=== PATIENT | female | born 1955 | race Caucasian/White ===

== ENCOUNTER 2016-08-07 19:01 | Emergency (ER) | payer OTHER ==
[~2016-08-07] VITALS: Ht 167.6 cm; Wt 59.0 kg
--- NOTE | 2016-08-07 19:09 | ED SYNCOPE COMPLAINT ---
History of Present Illness General Chief Complaint: Syncope and Near-Syncope Stated Complaint: SYNCOPAL EPISODE AT WORK Source: patient, old records, EMS Exam Limitations: no limitations Vital Signs & Intake/Output Vital Signs & Intake/Output Vital Signs Date Time Temp Pulse Resp B/P Pulse O2 O2 Flow FiO2 Ox Delivery Rate 08/07 2313 Room Air 08/07 2313 97.2 74 16 109/61 98 Room Air 08/07 2129 97.6 88 18 128/66 98 Room Air 08/07 1908 Nasal 2.0L Cannula 08/07 1906 76 18 118/69 98 Nasal 2.0L Cannula Allergies Coded Allergies: No Known Allergies (08/07/16) Reconcile Medications Azelaic Acid (Finacea) 15 % FOAM 1 GENARO TOP QHS FACE (Reported) Ergocalciferol (Vitamin D2) (Vitamin D2) 50,000 UNIT CAPSULE 1 CAP PO QSUN SUPPLEMENT (Reported) Hydrochlorothiazide 12.5 MG CAPSULE 1 CAP PO DAILY BP (Reported) Levothyroxine Sodium 25 MCG TABLET 1 TAB PO DAILY THYROID (Reported) Lisinopril 20 MG TABLET 1 TAB PO DAILY BP (Reported) Meloxicam 15 MG TABLET 1 TAB PO PRN PAIN/INFLAMMATION (Reported) Metronidazole (Metrocream) 0.75 % CREAM..G. 1 GENARO TOP QAM FACE (Reported) apply to affected area(s) Triage Note: PT IS A [employer]. WAS AT WORK ASSISTING A CLIENT. PT HAD ABDOMINAL CRAMPING AND LEFT CLIENT AND QUICKLY WENT TO BATHROOM AND HAD BM. THEN WENT BACK TO CLIENT. PATIENT STATES SHE WAS DIZZY, BREtHING HEAVY, ROOM FELT HOT AND SHE PASSED OUT. Triage Nurses Notes Reviewed? yes HPI: Patient is a [employer] and she was helping a patient. The patient then began to have abdominal cramping so she went to the bathroom. While moving her bowels she felt very lightheaded. Patient then went back to helping the patient. While doing so she felt very lightheaded and needed to sit down. Patient can put her head between her knees because she fell and she was given a pass out. Patient denies actually passing out but does think that she lost track of time. Patient denies any chest pain or palpitations. Patient felt better however figured that she should probably come in to get it evaluated. Patient has no chronic complaints. Patient had no orthostatic changes. Past History Travel History Traveled to [place] past 21 day No Medical History Any Pertinent Medical History? see below for history Neurological: NONE EENT: NONE Cardiovascular: hypertension Respiratory: NONE Gastrointestinal: NONE Hepatic: NONE Renal: NONE Musculoskeletal: NONE Psychiatric: NONE Endocrine: hypothyroidism Blood Disorders: NONE Cancer(s): NONE Surgical History Surgical History: non-contributory Psychosocial History What is your primary language Guyanese Tobacco Use: Current Daily Use Daily Tobacco Use Amount/Type: =< 4 Cigarettes daily ETOH Use: occasional use Illicit Drug Use: denies illicit drug use Family History Hx Contributory? No Review of Systems Review of Systems Constitutional: Reports: no symptoms. EENTM: Reports: no symptoms. Respiratory: Reports: no symptoms. Cardiovascular: Reports: no symptoms. GI: Reports: see HPI, abdominal pain. Genitourinary: Reports: no symptoms. Musculoskeletal: Reports: no symptoms. Skin: Reports: no symptoms. Neurological/Psychological: Reports: no symptoms. All Other Systems: Reviewed and Negative Physical Exam Physical Exam General Appearance: well developed/nourished, alert, awake, anxious, mild distress Head: atraumatic, normal appearance Eyes: Bilateral: PERRL, EOMI. Ears, Nose, Throat: normal pharynx, normal ENT inspection, hearing grossly normal Neck: normal inspection, supple, full range of motion Respiratory: normal breath sounds, chest non-tender, no respiratory distress, lungs clear Cardiovascular: regular rate/rhythm, normal peripheral pulses Gastrointestinal: normal bowel sounds, soft, non-tender, no organomegaly Back: normal inspection, normal range of motion Extremities: normal inspection, normal capillary refill, normal range of motion, no edema Psychiatric: awake, alert, oriented x 3 Cranial Nerves: normal hearing, normal speech, PERRL Coordination/Gait: normal gait Motor/Sensory: no motor/sensory deficits Skin: intact, normal color, warm/dry Core Measures ACS in differential dx? Yes ASA ordered for poss ACS? No-ACS ruled out CVA/TIA Diagnosis: No Severe Sepsis Present: No Septic Shock Present: No Progress Differential Diagnosis: AMI, aortic dissection, drug induced syncope, orthostatic syncope, pulmonary embolus, sick sinus syndrome, vasodepressor syncope Plan of Care: Orders Procedure Date/time Status TROPONIN LEVEL 08/08 2219 Complete BASIC METABOLIC PANEL 08/08 2219 Complete EKG 08/08 2011 Active Telemetry/[facility] [employer] 04/17 1908 Active TROPONIN LEVEL 08/08 1907 Complete COMPREHENSIVE METABOLIC PANEL 08/08 1907 Complete CBC WITHOUT DIFFERENTIAL 08/08 1907 Complete Laboratory Tests 08/07/16 2227: Anion Gap 9, Estimated GFR 50 L, BUN/Creatinine Ratio 10.9, Glucose 139 H, Calcium 8.7, Troponin I < 0.01 08/07/161928: Anion Gap 15, Estimated GFR 42 L, BUN/Creatinine Ratio 10.0, Glucose 104 H, Calcium 9.5, Total Bilirubin 0.5, AST 104 H, ALT 51, Alkaline Phosphatase 93, Troponin I < 0.01, Total Protein 6.8, Albumin 4.3, Globulin 2.5, Albumin/ Globulin Ratio 1.7, CBC w Diff NO MAN DIFF REQ, RBC 3.27 L, MCV 106.2 H, MCH 35.7 H, RDW 14.1, MPV 8.4, Gran % 85.1 H, Lymphocytes % 8.9 L, Monocytes % 5.5, Eosinophils % 0.1, Basophils % 0.4, Absolute Granulocytes 8.7 H, Absolute Lymphocytes 0.9 L, Absolute Monocytes 0.6, Absolute Eosinophils 0, Absolute Basophils 0, PUBS MCHC 33.7 Initial ED EKG: NSR, no ST T wave changes Prior EKG: unchanged Departure Departure Disposition: HOME OR SELF CARE Condition: Stable Clinical Impression Primary Impression: Syncope Secondary Impressions: Hyponatremia Referrals: SUYAPA DUCKWORTH,KRISS Reyna (PCP/Family) Additional Instructions: RETURN IF SYMPTOMS WORSEN OR FOR ANY CONCERNS Departure Forms: Customer Survey General Discharge Information
[2016-08-07] MEDS ORDERED: MELOXICAM15 M1 PO (19:29)
[2016-08-07] MEDS ORDERED: LEVOTHYROXINE25 MCG PO (19:29)
[2016-08-07] MEDS ORDERED: HYDROCHLOROTH12.5 M3 PO (19:29)
[2016-08-07] MEDS ORDERED: LISINOPRIL20 M1 PO (19:29)
[2016-08-07] MEDS ORDERED: FINACEA50 GM TOP (19:30)
[2016-08-07] MEDS ORDERED: VITAMIN D250000 UNIT PO (19:30)
[2016-08-07] MEDS ORDERED: METROCREAM45 GM TOP (19:30)
[2016-08-07 19:37] LABS: ABSOLUTE BASOPHIL COUNT 0 /CUMM (0.0-0.2); ABSOLUTE EOSINOPHIL COUNT 0 /CUMM (0.0-0.7); ABSOLUTE GRANULOCYTE CT 8.7 /CUMM (1.4-6.5); ABSOLUTE LYMPH COUNT 0.9 /CUMM (1.2-3.4); ABSOLUTE MONOCYTE COUNT 0.6 /CUMM (0.10-0.60); BASOPHIL % 0.4 % (0.0-2.0); EOSINOPHIL % 0.1 % (0-5); MEAN CORPUSCULAR HGB 35.7 PG (27.0-31.0); MEAN CORPUSCULAR HGB CONC 33.7 G/DL (33.0-37.0); MEAN PLATELET VOLUME 8.4 FL (7.4-10.4); PLATELET COUNT 170 /CUMM (130-400); RBC DISTRIBUTION WIDTH 14.1 % (11.5-14.5); RED BLOOD CELL CT 3.27 /CUMM (4.20-5.40); WHITE BLOOD CELL COUNT 10.3 /CUMM (4.8-10.8)
[2016-08-07 19:52] LABS: GRANULOCYTE % 85.1 % (42.2-75.2); HEMATOCRIT 34.7 % (37-47); MEAN CORPUSCULAR VOLUME 106.2 FL (81.0-99.0)
[2016-08-07 23:14] VITALS: BP 109/61
== END 2016-08-07 23:51 ==
LOC: ERH 19:01
PROVIDERS: Emergency Medicine
DX: R55 Syncope and collapse (principal); E87.1 Hypo-osmolality and hyponatremia
CPT/HCPCS: 93005; 93010; 96360; 96361

== ENCOUNTER 2017-11-05 13:35 | Inpatient (IN) | payer OTHER ==
[~2017-11-05] VITALS: Ht 167.6 cm; Wt 56.3 kg
[~2017-11-05 13:35] MED LIST: FINACEA50 GM TOP; HYDROCHLOROTH12.5 M3 PO; MELOXICAM15 M1 PO; METROCREAM45 GM TOP; VITAMIN D250000 UNIT PO
[2017-11-05 13:58] LABS: ABSOLUTE BASOPHIL COUNT 0 /CUMM (0.0-0.2); ABSOLUTE EOSINOPHIL COUNT 0 /CUMM (0.0-0.7); ABSOLUTE LYMPH COUNT 1.6 /CUMM (1.2-3.4); ABSOLUTE MONOCYTE COUNT 0.8 /CUMM (0.10-0.60); BASOPHIL % 0.4 % (0.0-2.0); EOSINOPHIL % 0.2 % (0-5); GRANULOCYTE % 73.9 % (42.2-75.2); HEMATOCRIT 41.6 % (37-47); MEAN CORPUSCULAR HGB 34.3 PG (27.0-31.0); MEAN CORPUSCULAR HGB CONC 34.2 G/DL (33.0-37.0); MEAN CORPUSCULAR VOLUME 100.4 FL (81.0-99.0); MEAN PLATELET VOLUME 8.1 FL (7.4-10.4); PLATELET COUNT 296 /CUMM (130-400); RBC DISTRIBUTION WIDTH 14.9 % (11.5-14.5); RED BLOOD CELL CT 4.14 /CUMM (4.20-5.40); WHITE BLOOD CELL COUNT 9.4 /CUMM (4.8-10.8)
[2017-11-05] MEDS ORDERED: LEXAPRO20 M1 PO (14:28)
[2017-11-05] MEDS ORDERED: GABAPENTIN300 M2 PO (14:28)
[2017-11-05] MEDS ORDERED: NALTREXONE HCL50 M1 PO (14:29)
--- NOTE | 2017-11-05 14:34 | ED GENERAL ADULT ---
History of Present Illness General Chief Complaint: General Adult Stated Complaint: SIB DR GARLAND FOR IV THEREAPY S/P BLOODWORK Source: patient Exam Limitations: no limitations Vital Signs & Intake/Output Vital Signs & Intake/Output Vital Signs Date Time Temp Pulse Resp B/P B/P Pulse O2 O2 Flow FiO2 Mean Ox Delivery Rate 11/05 1533 184/102 11/05 1529 75 18 187/102 98 Room Air 11/05 1341 98.9 93 19 204/106 97 Room Air Allergies Coded Allergies: No Known Allergies (08/07/16) Reconcile Medications Ergocalciferol (Vitamin D2) (Vitamin D2) 50,000 UNIT CAPSULE 1 CAP PO QSUN SUPPLEMENT (Reported) Escitalopram Oxalate (Lexapro) 20 MG TABLET 1 TAB PO DAILY MENTAL HEALTH ( Reported) Gabapentin 300 MG CAPSULE 1 CAP PO TID PRN UNKNOWN (Reported) Hydrochlorothiazide 12.5 MG CAPSULE 1 CAP PO DAILY BP (Reported) Levothyroxine Sodium 25 MCG TABLET 1 TAB PO DAILY THYROID (Reported) Lisinopril 20 MG TABLET 1 TAB PO DAILY BP (Reported) Naltrexone HCl 50 MG TABLET 1 TAB PO DAILY MENTAL HEALTH (Reported) Triage Note: PT SENT TO ED BY MD GARLAND FOR ?ABNORMAL ELECTROLYTES?. PT STATES HAD ROUTINE BLOOD WORK THIS AM AND WAS CALLED TO COME TO ED. PT IS COMPLAINT FREE AT THIS TIME. BP 204/106 IN TRIAGE. STATES DOES NOT TAKE BP MEDS. Triage Nurses Notes Reviewed? yes Onset: Abrupt Duration: day(s): Timing: constant HPI: 62-year-old female with history of hypertension, hypothyroid, EtOH abuse sent in for hypomagnesemia to 0.9 found on routine outpatient labs. Patient denies a history of hypomagnesemia in the past. States that her last EtOH use was several weeks ago, and is currently in an outpatient detox program patient denies any withdrawal seizures, DTs, or tremors when she withdraws. Does not need EtOH detox at this time. Patient is asymptomatic with no complaints, denies chest pain or shortness of breath. Past History Travel History Traveled to [place] past 21 day No Medical History Any Pertinent Medical History? see below for history Neurological: NONE EENT: NONE Cardiovascular: hypertension Respiratory: NONE Gastrointestinal: NONE Hepatic: NONE Renal: NONE Musculoskeletal: NONE Psychiatric: alcohol dependence Endocrine: hypothyroidism Blood Disorders: NONE Cancer(s): NONE Surgical History Surgical History: non-contributory Psychosocial History What is your primary language Somali Family History Hx Contributory? No Review of Systems Review of Systems Constitutional: Reports: no symptoms. EENTM: Reports: no symptoms. Respiratory: Reports: no symptoms. Cardiovascular: Reports: no symptoms. GI: Reports: no symptoms. Genitourinary: Reports: no symptoms. Musculoskeletal: Reports: no symptoms. Skin: Reports: no symptoms. Neurological/Psychological: Reports: no symptoms. Hematologic/Endocrine: Reports: no symptoms. Immunologic/Allergic: Reports: no symptoms. All Other Systems: Reviewed and Negative Physical Exam Physical Exam General Appearance: well developed/nourished, no apparent distress, alert, awake , comfortable Head: atraumatic, normal appearance Eyes: Bilateral: normal appearance. Ears, Nose, Throat: no tongue fasciculations Neck: normal inspection Respiratory: normal breath sounds, lungs clear Cardiovascular: regular rate/rhythm Gastrointestinal: soft, non-tender Back: normal inspection Extremities: normal inspection, no tremors Neurologic/Psych: awake, alert, oriented x 3, normal gait, normal mood/affect Skin: intact, normal color, warm/dry Core Measures ACS in differential dx? No CVA/TIA Diagnosis: No Sepsis Present: No Sepsis Focused Exam Completed? No Progress Differential Diagnoses I considered the following diagnoses in my evaluation of the patient: [ Hypomagnesemia versus cardiac arrhythmia versus EtOH intoxication versus EtOH withdrawal] Plan of Care: Orders Procedure Date/time Status Add-on Test (ER Only) 11/05 1501 Active Add-on Test (ER Only) 11/05 1440 Active Add-on Test (ER Only) 11/05 1433 Active TSH REFLEX 11/05 1347 Complete TROPONIN LEVEL 11/05 1347 Complete MAGNESIUM 11/05 1347 Complete ETHANOL 11/05 1347 Complete URINALYSIS 11/05 1345 Complete COMPREHENSIVE METABOLIC PANEL 11/05 1345 Complete CBC WITHOUT DIFFERENTIAL 11/05 1345 Complete EKG 11/05 1345 Active Current Medications Sig/Hermes Start time Last Medication Dose Stop Time Status Admin Magnesium Sulfate 1 GM Q2H 11/05 1530 AC 11/05 (Mag Sulfate in D5) 11/05 1929 1553 Dextrose/Water 100 ML (D5W) Laboratory Tests 11/05/17 1348: Magnesium Cancelled 11/05/17 1347: Anion Gap 18 H, Estimated GFR > 60, BUN/Creatinine Ratio 12.5, Glucose 121 H, Calcium 10.2, Magnesium 0.9 *L, Total Bilirubin 1.7 H, AST 111 H, ALT 73 H, Alkaline Phosphatase 79, Troponin I < 0.01, Total Protein 8.1, Albumin 4.9, Globulin 3.2, Albumin/Globulin Ratio 1.5, TSH &T3 &Free T4 Intrp 6.580 H, CBC w Diff NO MAN DIFF REQ, RBC 4.14 L, MCV 100.4 H, MCH 34.3 H, MCHC 34.2, RDW 14.9 H, MPV 8.1, Gran % 73.9, Lymphocytes % 16.9 L, Monocytes % 8.6, Eosinophils % 0.2, Basophils % 0.4, Absolute Granulocytes 7.0 H, Absolute Lymphocytes 1.6, Absolute Monocytes 0.8 H, Absolute Eosinophils 0, Absolute Basophils 0, Serum Alcohol < 10.0, Urine Color YEL, Urine Clarity CLEAR, Urine pH 6.0, Ur Specific Ney >= 1.030, Urine Protein NEG, Urine Ketones NEG, Urine Nitrite NEG, Urine Bilirubin NEG, Urine Urobilinogen 0.2, Ur Leukocyte Esterase NEG, Ur Microscopic EXAM NOT REQUIRED, Urine Hemoglobin NEG, Urine Glucose NEG Magnesium is 0.9 on repeat labs in the ER. Patient given 2 g of IV magnesium sulfate, and for 100 mg of oral magnesium oxide. Discussed with hospitalist and will admit the patient to telemetry for her EKG changes and continued magnesium repletion. Initial ED EKG: NSR, ST depression (anterior leads), normal QTc Departure Departure Disposition: STILL A PATIENT Condition: Stable Clinical Impression Primary Impression: Hypomagnesemia Secondary Impressions: Acute electrocardiogram changes Referrals: Madison DUCKWORTH,Jeanne Reyna (PCP/Family) Departure Forms: Customer Survey General Discharge Information Admission Note Spoke With: Phan He MD Documentation of Exam: Documentation of any treatments & extenuating circumstances including Concerns Regarding Discharge (functional status, medication knowledge or non-compliance, living conditions, etc.) that warrant an admission rather than observation: [ Hemodynamic monitoring, telemetry monitoring, IV and oral magnesium repletion, serial EKGs, serial troponins] Critical Care Note Critical Care Note Critical Care Time: non-applicable
--- NOTE | 2017-11-05 17:14 | History & Physical ---
Clint Dumont 11/05/17 1713: General Information and HPI Source of Information: patient Exam Limitations: no limitations History of Present Illness: Ms. Cool is a 62-year-old female with history of alcohol abuse currently in treatment, hypertension, hypothyroidism and depression. The patient presented to outpatient psychiatry for medical screening and was sent to the emergency department due to abnormal lab findings of hypomagnesemia. Upon arrival to the emergency department, the patient was noted to have a blood pressure of 204/106, as well as acute EKG changes of new ST elevation in V4. Patient denied any associated symptoms including chest pain, palpitations, shortness of breath, visual changes, headache, weakness, tingling/numbness, changes in gait, lightheadedness, dizziness. The patient said that she had been prescribed hydrochlorothiazide and lisinopril for blood pressure, but is not taking them currently as she was told to stop by her primary care doctor almost 2 years ago. She is similarly no longer taking levothyroxine for her thyroid. Patient denies any changes in urinary or bowel habits, and other review of systems is likewise negative. The patient is a former smoker, having smoked about 1 pack per week for over 30 years, but reports that she has quit and no longer smokes. She denies any recreational drug use. She does endorse a history of drinking alcohol 4 days a week and drinking at least "4 ounces" each of those days, but reports that she has recently completed and [facility] program for intensive alcohol abuse treatment. In spite of this, the patient reports that her last drink was this past , 4 days ago. Allergies/Medications Allergies: Coded Allergies: No Known Allergies (08/07/16) Compliance With Home Meds: FAIR Past History Travel History Traveled to [place] past 21 day No Medical History Neurological: peripheral neuropathy (bilateral feet) EENT: NONE Cardiovascular: hypertension Respiratory: NONE Gastrointestinal: NONE Hepatic: NONE Renal: NONE Musculoskeletal: NONE Psychiatric: alcohol dependence, depression Endocrine: hypothyroidism Blood Disorders: NONE Cancer(s): NONE Surgical History Surgical History: non-contributory Past Family/Social History Psychosocial History Smoking Status: Former Smoker ETOH Use: alcoholic (currently in treatment) Illicit Drug Use: denies illicit drug use Review of Systems Review of Systems Constitutional: Denies: chills, diaphoresis, fever. Cardiovascular: Denies: chest pain, orthopena, palpitations, peripheral edema, syncope. Respiratory: Denies: cough, short of breath, wheezing. GI: Denies: abdominal pain, nausea, changes in stool, vomiting. Genitourinary: Denies: no symptoms. Musculoskeletal: Denies: muscle stiffness, neck pain. Neurological/Psychological: Denies: confusion, headache, tremors. Exam & Diagnostic Data Last 24 Hrs of Vital Signs/I&O Vital Signs Date Time Temp Pulse Resp B/P B/P Pulse O2 O2 Flow FiO2 Mean Ox Delivery Rate 11/05 1725 98.1 76 18 168/93 11/05 1715 98.1 76 18 168/93 98 Room Air 11/05 1533 184/102 11/05 1529 75 18 187/102 98 Room Air 11/05 1341 98.9 93 19 204/106 97 Room Air Intake & Output 11/05 1600 11/05 0800 11/05 0000 Intake Total 0 Output Total Balance 0 Intake, Oral 0 Physical Exam General Appearance Alert, Oriented X3, Cooperative, No Acute Distress HEENT Atraumatic, PERRLA, EOMI Neck Supple, No JVD, +2 Carotid Pulse wo Bruit Cardiovascular Regular Rate, Normal S1, Normal S2, No Murmurs Lungs Clear to Auscultation Abdomen Normal Bowel Sounds, Soft, No Tenderness Neurological Normal Gait, Normal Speech, Strength at 5/5 X4 Ext, Sensation Intact Extremities No Clubbing, No Cyanosis, No Edema Last 24 Hrs of Labs/Cain: Laboratory Tests 11/05/17 1348: Magnesium Cancelled 11/05/17 1347: Anion Gap 18 H, Estimated GFR > 60, BUN/Creatinine Ratio 12.5, Glucose 121 H, Calcium 10.2, Magnesium 0.9 *L, Total Bilirubin 1.7 H, AST 111 H, ALT 73 H, Alkaline Phosphatase 79, Troponin I < 0.01, Total Protein 8.1, Albumin 4.9, Globulin 3.2, Albumin/Globulin Ratio 1.5, TSH &T3 &Free T4 Intrp 6.580 H, CBC w Diff NO MAN DIFF REQ, RBC 4.14 L, MCV 100.4 H, MCH 34.3 H, MCHC 34.2, RDW 14.9 H, MPV 8.1, Gran % 73.9, Lymphocytes % 16.9 L, Monocytes % 8.6, Eosinophils % 0.2, Basophils % 0.4, Absolute Granulocytes 7.0 H, Absolute Lymphocytes 1.6, Absolute Monocytes 0.8 H, Absolute Eosinophils 0, Absolute Basophils 0, Serum Alcohol < 10.0, Urine Color YEL, Urine Clarity CLEAR, Urine pH 6.0, Ur Specific [place] >= 1.030, Urine Protein NEG, Urine Ketones NEG, Urine Nitrite NEG, Urine Bilirubin NEG, Urine Urobilinogen 0.2, Ur Leukocyte Esterase NEG, Ur Microscopic EXAM NOT REQUIRED, Urine Hemoglobin NEG, Urine Glucose NEG Assessment/Plan Assessment: Patient is a 62-year-old female with a history of alcohol abuse currently in treatment, hypertension, hypothyroidism and depression. She is being admitted for acute EKG changes and hypertensive urgency in the setting of hypomagnesemia with a history of alcohol abuse. 1. Acute EKG changes 2. Hypertensive urgency 3. Hypomagnesemia 4. Alcohol abuse not been drinking daily protocol 5. Hypothyroid levothyroxine in the past As Ranked By This Provider Problem List: 1. Alcohol abuse 2. Acute electrocardiogram changes 3. Hypomagnesemia 4. Hypothyroid 5. Hypertensive urgency Core Measures/Misc (01/07) Acute Coronary Syndrome ACS Diagnosis: No Congestive Heart Failure Congestive Heart Failure Diagnosis No Cerebrovascular Accident CVA/TIA Diagnosis: No VTE (View Protocol) VTE Risk Factors Age>40 No Mechanical VTE Prophylaxis d/t N/A MechProphylax Ordered No VTE Pharm Prophylaxis d/t LowRisk-No Interven Req'd Sepsis (View protocol) Sepsis Present: No If YES complete Sepsis Event Note If YES complete Sepsis Event Note Augustus Kilgore 11/05/17 1830: Core Measures/Misc (01/07) Sepsis (View protocol) If YES complete Sepsis Event Note If YES complete Sepsis Event Note Resident Review Statement Resident Statement: examined this patient, discussed with music intern, agreed with music intern, discussed with family, reviewed EMR data (avail), discussed with nursing , discussed with case mgmt, reviewed images, amended to note Other Findings: This is a 62-year-old female with past medical history significant for hypertension, hypothyroidism, vitamin D deficiency, depression, neuropathy, alcohol abuse was sent in by Dr. ohara psychiatrist for abnormal electrolytes. Patient has history of alcohol abuse, started following up psychiatrist as an outpatient, involved in IOP program. As a part of follow-up, routine labs were drawn, she was found to have a low magnesium, she was sent in by psychiatrist to the hospital for admission and get her electrolytes repleted. Patient denied any chest pain, palpitations, short of breath, fever, cough, chills, headache, nausea, vomiting, abdominal pain, focal neurologic deficits, gait or vision abnormalities. Denies illicit drug abuse. Last alcohol drink was . She smokes 1 pack per day for 30 years. Offers no other complaints. Patient has history of hypertension, follows up Dr. Wallace primary care physician. She was on hydrochlorothiazide and lisinopril however stopped in 2017 after blood pressure was normal. She has history of hypothyroidism on levothyroxine 25 mcg however stopped in 2016. Vitals afebrile, heart rate 93, respiratory rate 19, blood pressure 204/106, 97 on room air On exam HEENT within normal limit S1-S2 normal, no JVD, no bruit or murmur, bilateral lung sounds normal, abdomen soft nontender nondistended, neuro exam within normal limits, lower extremity no edema no cyanosis no clubbing Pertinent labs WBC 9, hemoglobin 14 and hematocrit 41, platelets 296 Sodium 137, potassium 3.5, BUN 10 and creatinine 0.8 Magnesium 0.9 UA normal U tox normal Troponin negative EKG 87, sinus rhythm, ST depression V4 which is new compared to the prior EKG in 2069 1. Hypomagnesemia Magnesium 0.9 Received IV MAG and oral MAG in the emergency room Follow-up MAG this evening and replete again Follow-up electrolytes in the a.m. 2. Hypertensive urgency Patient was found to have blood pressure 204/106 in the emergency room with no endorgan damage. Denied chest pain, no focal neurologic deficits, no vision changes. CAT scan chest was within normal limits. * Follow-up in telemetry * Hypertensive urgency with no endorgan damage * She was off from antihypertensive agents hydrochlorothiazide and lisinopril since 2017 once her blood pressure normalized * Will start her on lisinopril 40 mg * Add further antihypertensive regimen based on her blood pressure control * Low salt diet * Continues telemetry monitoring * Serial troponin and EKG * Cardiology consult * Echocardiogram 3. New EKG changes Patient was found to have new EKG changes with ST depressions in V4 compared to prior EKG in 2017. Troponin was negative. She is completely asymptomatic. However her blood pressure was running high suggestive of hypertensive urgency. EKG changes most likely from hypertension * Serial troponin and EKG * Echocardiogram * Cardiology consult 4. Abnormal LFTs 1.7, 111, 73 most likely due to alcohol abuse looks like alcoholic hepatitis 5. Abnormal TSH She has TSH 6.5. She has history of hypothyroid used to take levothyroxine 25 in the past. However she has not been taking any hypothyroid medications since 2017. * We will repeat thyroid function tests in 4 weeks DVT prophylaxis subcu heparin Full code Regular diet pain pathway ordered Phan He MD 11/05/17 2140: General Information and HPI Allergies/Medications Home Med list Ergocalciferol (Vitamin D2) (Vitamin D2) 50,000 UNIT CAPSULE 1 CAP PO QSUN SUPPLEMENT (Reported) Escitalopram Oxalate (Lexapro) 20 MG TABLET 1 TAB PO DAILY MENTAL HEALTH ( Reported) Gabapentin 300 MG CAPSULE 1 CAP PO TID PRN UNKNOWN (Reported) Levothyroxine Sodium (Synthroid) 25 MCG TABLET 0.025 MG PO DAILY AC HYPOTHYRIDISM Lisinopril 40 MG TABLET 1 TAB PO DAILY HTN Naltrexone HCl 50 MG TABLET 1 TAB PO DAILY MENTAL HEALTH (Reported) Core Measures/Misc (01/07) Sepsis (View protocol) If YES complete Sepsis Event Note If YES complete Sepsis Event Note Attending MD Review Statement Attending Statement Attending MD Statement: examined this patient, discuss w/resident/PA/GRANITE BLOCK PAVER, agreed w/resident/PA/GRANITE BLOCK PAVER, reviewed EMR data (avail), discussed with nursing, amended to note Attending Assessment/Plan: The patient is a 62 yo female with h/o HTN (off meds at present), hypothyroidism , and depression as well as alcohol dependence/abuse who presented in the ED referred from OP psychiatry (Dr. Ohara) after noting hypomagnesemia on blood testing (0.9). She was also in the ED noted to have an elevated BP of 204/106. She had been on Lisinopril/HCTZ prescribed by Dr. Wallace in the past, however had discontinued these in 2017. The patient stated that Dr. Wallace told her she did not require meds anymore. Noted that the patient discontinued both her HCTZ/ Lisinopril and Levothyroxine. She denied any headache, visual blurring, chest pain, dyspnea, or abdominal pain. Physical Exam: VS: T 98.9, P 93, R 19, BP 204/106-168/93, PO 98% RA HEENT: eyes- PERRLA, EOMI rachel- dry Neck: no bruits or adenopathy Chest: clear Cor: RRR, nl S1, S2 w/o murm Abd: BS+, soft, NT Ext: no edema Labs-as above Impression/Plan: #Hypomagnesemia- vague symptoms. Most likely related to stopping meds, poor nutrition. Had diarrhea post oral Mg given in Ed. Plan: Check follow-up Mg post IV given. Will replete with IV Mag. Check nutritional parameters. If does go on oral Mg would use Slo-Mag as it is less likely to cause loose stools. #Hypertensive Urgency- BP as above. Plan: Will give Lisinopril 40 mg now and follow-up BP. May need Amlodipine if BP still elevated. #Abnormal EKG- with mild ST depression. May be related to BP. Initial troponin negative. Plan: Will trend EKG s and symptoms, troponin I. Agree with ECHO and Cardiology consult. ' #h/o Alcohol Dependence- last drink 1 week ago. Plan: Will need further counseling- Social Service Consult. #Hypothyroid- on Levothyroxine. Plan: Continue Levothyroxine. #Peripheral Neuropathy- ongoing. Plan: Continue Gabapentin. #Depression- was seeing Dr. Ohara as OP who patient states was going to adjust her psych meds. Plan: Will discuss with Dr. Ohara.
[2017-11-05 18:44] VITALS: BP 152/100
[2017-11-05 19:30] VITALS: BP 148/92
--- NOTE | 2017-11-05 21:32 | Admission Certification ---
Admission Certification Certification Statement - As attending physician, I certify that at the time of - admission, based on clinical presentation, severity of - symptoms, need for further diagnostic testing and - therapeutic interventions, and risk of adverse outcomes - without in-hospital treatment, in my clinical assessment, - this patient requires an acute hospital stay for a minimum - of two nights or longer. I have also considered psychsocial - factors such as support system, advanced age, financial - issues, cognitive issues, and failed out-patient treatments, - past re-admission history, safety of patient, and lack of - compliance as applicable. Specific rationale supporting this admission is: The patient presents with hypomagnesemia, ST-T changes on EKG and hypertensive urgency with BP 187-102-204/106. Needs telemetry admission, repletion of Mg, serial troponins, cardiology evluation and ECHO.
[2017-11-05 22:01] VITALS: BP 136/98
[2017-11-06 07:07] VITALS: BP 126/80
--- NOTE | 2017-11-06 07:08 | PN- Housestaff ---
Clint Dumont 11/06/17 0707: Subjective Follow-up For: Hypomagnesemia, hypertensive urgency Tele-Events Since Last Visit: Normal sinus rhythm the rates of 69-79 overnight, as well as sinus bradycardia at 59 Subjective: Patient seen seated comfortably at the bedside, eating breakfast. She reports feeling restless overnight, but denies headache, nausea, vomiting, tremors. She attributes this restlessness to spending the night in the hospital and all the stress from yesterday. Patient additionally denies chest pain, palpitations, shortness breath, dizziness. Review of Systems Constitutional: Denies: chills, fever, weakness. Cardiovascular: Denies: chest pain, edema, palpitations. Respiratory: Denies: cough, short of breath, wheezing. Gastrointestinal: Denies: abdominal pain, nausea, vomiting. Objective Last 24 Hrs of Vital Signs/I&O Vital Signs Date Time Temp Pulse Resp B/P B/P Pulse O2 O2 Flow FiO2 Mean Ox Delivery Rate 11/05 2201 98.1 80 18 136/98 98 Room Air 11/05 1930 94 148/92 11/05 1844 98.3 77 18 152/100 99 Room Air 11/05 1725 98.1 76 18 168/93 11/05 1715 98.1 76 18 168/93 98 Room Air 11/05 1533 184/102 11/05 1529 75 18 187/102 98 Room Air 11/05 1341 98.9 93 19 204/106 97 Room Air Intake & Output 11/06 0800 11/06 0000 11/05 1600 Intake Total 220 350 0 Output Total Balance 220 350 0 Intake, Oral 220 350 0 Patient 55.055 kg Weight Weight Bed scale Measurement Method Physical Exam General Appearance: Alert, Oriented X3, Cooperative, No Acute Distress HEENT: Atraumatic, PERRLA, EOMI Neck: Supple, No JVD, +2 Carotid Pulse wo Bruit Cardiovascular: Regular Rate, Normal S1, Normal S2, No Murmurs Lungs: Clear to Auscultation Abdomen: Normal Bowel Sounds, Soft, No Tenderness Neurological: Normal Gait, Normal Speech Current Medications: Current Medications Sig/Hermes Start time Last Medication Dose Route Stop Time Status Admin Acetaminophen 650 MG Q6P PRN 11/05 1700 AC PO Escitalopram Oxalate 20 MG DAILY 11/05 1847 AC 11/05 PO 1945 Gabapentin 300 MG TID PRN 11/05 1900 AC PO Heparin Sodium 5,000 UNIT Q8 11/05 2200 AC 11/06 (Porcine) SC 0527 Lisinopril 0 .STK-MED ONE 11/05 1724 DC PO Lisinopril 40 MG DAILY 11/05 1715 AC 11/05 PO 1725 Magnesium Oxide 400 MG ONCE ONE 11/05 1430 DC / PO 11/05 1431 1454 Magnesium Sulfate 1 GM Q2H 11/05 1530 DC 11/05 Dextrose/Water 100 ML IV 11/05 1929 1553 Magnesium Sulfate 2 GM ONCE ONE 11/05 1430 DC 11/05 Dextrose/Water 100 ML IV 11/05 1829 1448 Melatonin 5 MG ONCE ONE 11/06 0045 DC 11/06 PO 11/06 0046 0108 Last 24 Hrs of Lab/Cain Results Last 24 Hrs of Labs/Mics: Laboratory Tests 11/06/17 0635: Sodium Pending, Potassium Pending, Chloride Pending, Carbon Dioxide Pending, Anion Gap Pending, BUN Pending, Creatinine Pending, BUN/Creatinine Ratio Pending , Magnesium Pending, Total Bilirubin Pending, Direct Bilirubin Pending, AST Pending, ALT Pending, Alkaline Phosphatase Pending, Total Protein Pending, Albumin Pending, CBC w Diff Pending, WBC Pending, RBC Pending, Hgb Pending, Hct Pending, MCV Pending, MCH Pending, MCHC Pending, RDW Pending, Plt Count Pending, MPV Pending 11/06/17 0215: Troponin I < 0.01 11/05/17 2050: Magnesium 1.8, Troponin I < 0.01 11/05/17 1348: Magnesium Cancelled 11/05/17 1347: Anion Gap 18 H, Estimated GFR > 60, BUN/Creatinine Ratio 12.5, Glucose 121 H, Calcium 10.2, Magnesium 0.9 *L, Total Bilirubin 1.7 H, AST 111 H, ALT 73 H, Alkaline Phosphatase 79, Troponin I < 0.01, Total Protein 8.1, Albumin 4.9, Globulin 3.2, Albumin/Globulin Ratio 1.5, TSH &T3 &Free T4 Intrp 6.580 H, CBC w Diff NO MAN DIFF REQ, RBC 4.14 L, MCV 100.4 H, MCH 34.3 H, MCHC 34.2, RDW 14.9 H, MPV 8.1, Gran % 73.9, Lymphocytes % 16.9 L, Monocytes % 8.6, Eosinophils % 0.2, Basophils % 0.4, Absolute Granulocytes 7.0 H, Absolute Lymphocytes 1.6, Absolute Monocytes 0.8 H, Absolute Eosinophils 0, Absolute Basophils 0, Serum Alcohol < 10.0, Urine Color YEL, Urine Clarity CLEAR, Urine pH 6.0, Ur Specific [place] >= 1.030, Urine Protein NEG, Urine Ketones NEG, Urine Nitrite NEG, Urine Bilirubin NEG, Urine Urobilinogen 0.2, Ur Leukocyte Esterase NEG, Ur Microscopic EXAM NOT REQUIRED, Urine Hemoglobin NEG, Urine Glucose NEG Assessment/Plan Assessment: Patient is a 62-year-old female with a history of alcohol abuse currently in treatment, hypertension, hypothyroidism and depression. She is being admitted for acute EKG changes and hypertensive urgency in the setting of hypomagnesemia with a history of alcohol abuse. 1. Acute EKG changes flattening in the anterior leads out ischemia 2. Hypertensive urgency 3. Hypomagnesemia last night 4. Alcohol abuse not been drinking daily protocol ordered 5. Hypothyroid Problem List: 1. Hypertensive urgency 2. Hypothyroid 3. Hypomagnesemia 4. Alcohol abuse 5. Acute electrocardiogram changes Pain Ratin Pain Location: NONE Pain Goal: Remain pain free Pain Plan: TYLENOL Tomorrow's Labs & Rationales: F/U MAGNESIUM LEVELS Ayah Perales MD 11/06/17 1011: Attending MD Review Statement Attending Statement Attending MD Statement: examined this patient, discuss w/resident/PA/GEOTHERMAL TECHNICIAN, agreed w/resident/PA/GEOTHERMAL TECHNICIAN, reviewed EMR data (avail), discussed with nursing, discussed with case mgmt, reviewed images Attending Assessment/Plan: 62-year-old female past medical history of hypertension and hypothyroidism, she follows with Dr. Wallace and says she's been off blood pressure medicines for years. She has a history of alcohol abuse with alcoholic liver disease as evidenced by a high bili, high AST and macrocytosis. She was in treatment at the [facility]- recently completed that and was seeing her psychiatrist as an outpatient and was noted to be in hypertensive urgency with a very elevated blood pressure of 204/109 and significantly hypomagnesemic with an elevated QTC. We restarted her on her lisinopril and her levothyroxin, her pressure is stable now, we are repleting the mag orally. Because of a subtle EKG changes we've ordered an echocardiogram and a cardiology consult and will also clarify the psychiatric meds with her outpatient psychiatrist.
[2017-11-06 08:03] LABS: ABSOLUTE BASOPHIL COUNT 0 /CUMM (0.0-0.2); ABSOLUTE EOSINOPHIL COUNT 0.2 /CUMM (0.0-0.7); ABSOLUTE GRANULOCYTE CT 4.5 /CUMM (1.4-6.5); ABSOLUTE LYMPH COUNT 2.1 /CUMM (1.2-3.4); ABSOLUTE MONOCYTE COUNT 0.5 /CUMM (0.10-0.60); BASOPHIL % 0.5 % (0.0-2.0); EOSINOPHIL % 2.1 % (0-5); GRANULOCYTE % 61.3 % (42.2-75.2); HEMATOCRIT 37.4 % (37-47); MEAN CORPUSCULAR HGB 34.6 PG (27.0-31.0); MEAN CORPUSCULAR HGB CONC 34.3 G/DL (33.0-37.0); MEAN PLATELET VOLUME 9.4 FL (7.4-10.4); PLATELET COUNT 211 /CUMM (130-400); RBC DISTRIBUTION WIDTH 14.3 % (11.5-14.5); WHITE BLOOD CELL COUNT 7.3 /CUMM (4.8-10.8)
--- NOTE | 2017-11-06 11:39 | Cons- Cardiology ---
General Information and HPI Consulting Request Date of Consult: 11/06/17 Requested By: Ayah Perales MD Reason for Consult: Hypertensive urgency, abnormal EKG History of Present Illness: The patient is a 62-year-old female with history of hypertension, hypothyroidism , depression, and alcohol abuse. She presented to outpatient psychiatry for medical screening and was referred to the emergency department for hypomagnesemia. In the emergency department she was noted to be severely hypertensive with blood pressure of 204/106. She was also noted to have an abnormal EKG. She reports that she is feeling well from a cardiac standpoint. No chest pain. No shortness of breath. No palpitations. She notes recent headaches, however she is currently free of headache. She was previously taking lisinopril and hydrochlorothiazide for hypertension, however she believes that her primary care physician advised her to discontinue her hypertension medications 2 years ago. She was previously taking levothyroxine for hypothyroidism, however she reports that this was discontinued as well. No lightheadedness or dizziness. No nausea or vomiting. No diaphoresis. She is a former smoker she has a history of alcohol abuse. She has recently completed an outpatient program for alcohol abuse. She denies any history of cardiac disease other than the hypertension. Allergies/Medications Allergies: Coded Allergies: No Known Allergies (08/07/16) Home Med List: Ergocalciferol (Vitamin D2) (Vitamin D2) 50,000 UNIT CAPSULE 1 CAP PO QSUN SUPPLEMENT (Reported) Escitalopram Oxalate (Lexapro) 20 MG TABLET 1 TAB PO DAILY MENTAL HEALTH ( Reported) Gabapentin 300 MG CAPSULE 1 CAP PO TID PRN UNKNOWN (Reported) Naltrexone HCl 50 MG TABLET 1 TAB PO DAILY MENTAL HEALTH (Reported) Current Medications: Current Medications Sig/Hermes Start time Last Medication Dose Route Stop Time Status Admin Acetaminophen 650 MG Q6P PRN 11/05 1700 AC PO Escitalopram Oxalate 20 MG DAILY 11/05 1847 AC 11/06 PO 1013 Gabapentin 300 MG TID PRN 11/05 1900 AC PO Heparin Sodium 5,000 UNIT Q8 11/05 2200 AC 11/06 (Porcine) SC 0527 Levothyroxine Sodium 0.025 MG DAILY AC 11/06 0815 AC PO Lisinopril 0 .STK-MED ONE 11/05 1724 DC PO Lisinopril 40 MG DAILY 11/05 1715 AC 11/06 PO 1013 Magnesium Chloride 64 MG BID 11/06 0935 AC 11/06 PO 1013 Magnesium Oxide 400 MG ONCE ONE 11/05 1430 DC 11/05 PO 11/05 1431 1454 Magnesium Sulfate 1 GM Q2H 11/05 1530 DC 11/05 Dextrose/Water 100 ML IV 11/05 1929 1553 Magnesium Sulfate 2 GM ONCE ONE 11/05 1430 DC 11/05 Dextrose/Water 100 ML IV 11/05 1829 1448 Melatonin 5 MG ONCE ONE 11/06 0045 DC 11/06 PO 11/06 0046 0108 Naltrexone HCl 50 MG DAILY 11/06 1000 AC PO Nicotine 21 MG DAILY 11/06 0930 AC 11/06 TOP 1014 Non-Formulary 0 SEE ADMIN CRITERIA 11/06 1000 CAN Medication ANY Review of Systems Review of Systems: No rash. No tremor. No fever. No chills. All other systems were reviewed, and were noted to be negative. Past History Travel History Traveled to [place] past 21 day No Medical History Blood Transfusion Hx: No Neurological: peripheral neuropathy (bilateral feet) EENT: NONE Cardiovascular: hypertension Respiratory: NONE Gastrointestinal: NONE Hepatic: NONE Renal: NONE Musculoskeletal: NONE Psychiatric: alcohol dependence, depression Endocrine: hypothyroidism Blood Disorders: NONE Cancer(s): NONE Surgical History Surgical History: non-contributory Family History Relations & Conditions If Any: MOTHER Chronic heart failure Psychosocial History Smoking Status: Former Smoker ETOH Use: alcoholic (currently in treatment) Illicit Drug Use: denies illicit drug use Exam & Diagnostic Data Vital Signs and I&O Vital Signs Date Time Temp Pulse Resp B/P B/P Pulse O2 O2 Flow FiO2 Mean Ox Delivery Rate 11/06 1013 82 138/82 11/06 0707 98.0 70 18 126/80 98 Room Air 11/05 2201 98.1 80 18 136/98 98 Room Air 11/05 1930 94 148/92 11/05 1844 98.3 77 18 152/100 99 Room Air 11/05 1725 98.1 76 18 168/93 11/05 1715 98.1 76 18 168/93 98 Room Air 11/05 1533 184/102 11/05 1529 75 18 187/102 98 Room Air 11/05 1341 98.9 93 19 204/106 97 Room Air Intake & Output 11/06 1600 11/06 0800 11/06 0000 11/05 1600 11/05 0800 11/05 0000 Intake Total 220 350 0 Output Total Balance 220 350 0 Intake, Oral 220 350 0 Patient 121 lb Weight Weight Bed scale Measurement Method Physical Exam: Gen: The patient is in no acute distress HEENT: Normal nose, ears, and oropharynx. Pupils equal bilaterally. Conjunctiva normal. Neck: Supple with no JVD, no masses, and no thyromegaly Lungs: Clear to auscultation with normal respiratory effort Heart: RRR, S1, S2, no murmurs. No peripheral edema, 2+ pulses in the lower extremities bilaterally Abdomen: Soft, nontender, no masses. No hepatomegaly. No splenomegaly Extremities: No clubbing or cyanosis. Normal muscle strength in the upper and lower extremities Skin: Normal skin turgor with no skin ulcers or lesions noted. Neuro: Cranial nerves intact. Sensation intact Psych: Alert and oriented 3 with appropriate affect Labs/Cian Results: Laboratory Tests 11/06 11/06 11/06 0855 0635 0215 Chemistry Sodium (137 - 145 mmol/L) 138 Potassium (3.5 - 5.1 mmol/L) 3.6 Chloride (98 - 107 mmol/L) 98 Carbon Dioxide (22 - 30 mmol/L) 30 Anion Gap (5 - 16) 9 BUN (7 - 17 mg/dL) 9 Creatinine (0.5 - 1.0 mg/dL) 0.7 Estimated GFR (>60 ml/min) > 60 BUN/Creatinine Ratio (7 - 25 %) 12.9 Magnesium (1.6 - 2.3 mg/dL) 1.5 L Total Bilirubin (0.2 - 1.3 mg/dL) 1.8 H Direct Bilirubin (< 0.4 mg/dL) 0.3 AST (14 - 36 U/L) 79 H ALT (9 - 52 U/L) 54 H Alkaline Phosphatase (<127 U/L) 67 Troponin I (< 0.11 ng/ml) < 0.01 Total Protein (6.3 - 8.2 g/dL) 6.7 Albumin (3.5 - 5.0 g/dL) 3.9 Vitamin B12 (239 - 931 pg/mL) 350 Folate (2.76 - 20.0 ng/mL) Cancelled 3.9 TSH (0.270 - 4.200 uIU/mL) 7.370 H Free T4 (0.78 - 2.44 ng/dL) 1.19 Total T3 (0.97 - 1.69 ng/mL) 1.26 Hematology CBC w Diff NO MAN DIFF REQ WBC (4.8 - 10.8 /CUMM) 7.3 RBC (4.20 - 5.40 /CUMM) 3.70 L Hgb (12.0 - 16.0 G/DL) 12.8 Hct (37 - 47 %) 37.4 MCV (81.0 - 99.0 FL) 101.0 H MCH (27.0 - 31.0 PG) 34.6 H MCHC (33.0 - 37.0 G/DL) 34.3 RDW (11.5 - 14.5 %) 14.3 Plt Count (130 - 400 /CUMM) 211 MPV (7.4 - 10.4 FL) 9.4 Gran % (42.2 - 75.2 %) 61.3 Lymphocytes % (20.5 - 51.1 %) 29.1 Monocytes % (1.7 - 9.3 %) 7.0 Eosinophils % (0 - 5 %) 2.1 Basophils % (0.0 - 2.0 %) 0.5 Absolute Granulocytes (1.4 - 6.5 /CUMM) 4.5 Absolute Lymphocytes (1.2 - 3.4 /CUMM) 2.1 Absolute Monocytes (0.10 - 0.60 /CUMM) 0.5 Absolute Eosinophils (0.0 - 0.7 /CUMM) 0.2 Absolute Basophils (0.0 - 0.2 /CUMM) 0 11/05 1348 Chemistry Magnesium (1.6 - 2.3 mg/dL) 1.8 Cancelled Troponin I (< 0.11 ng/ml) < 0.01 11/05 1347 Chemistry Sodium (137 - 145 mmol/L) 137 Potassium (3.5 - 5.1 mmol/L) 3.5 Chloride (98 - 107 mmol/L) 95 L Carbon Dioxide (22 - 30 mmol/L) 24 Anion Gap (5 - 16) 18 H BUN (7 - 17 mg/dL) 10 Creatinine (0.5 - 1.0 mg/dL) 0.8 Estimated GFR (>60 ml/min) > 60 BUN/Creatinine Ratio (7 - 25 %) 12.5 Glucose (65 - 99 mg/dL) 121 H Calcium (8.4 - 10.2 mg/dL) 10.2 Magnesium (1.6 - 2.3 mg/dL) 0.9 *L Total Bilirubin (0.2 - 1.3 mg/dL) 1.7 H AST (14 - 36 U/L) 111 H ALT (9 - 52 U/L) 73 H Alkaline Phosphatase (<127 U/L) 79 Troponin I (< 0.11 ng/ml) < 0.01 Total Protein (6.3 - 8.2 g/dL) 8.1 Albumin (3.5 - 5.0 g/dL) 4.9 Globulin (1.9 - 4.2 gm/dL) 3.2 Albumin/Globulin Ratio (1.1 - 2.2 %) 1.5 TSH &T3 &Free T4 Intrp (0.270 - 4.20 uIU/mL) 6.580 H Hematology CBC w Diff NO MAN DIFF REQ WBC (4.8 - 10.8 /CUMM) 9.4 RBC (4.20 - 5.40 /CUMM) 4.14 L Hgb (12.0 - 16.0 G/DL) 14.2 Hct (37 - 47 %) 41.6 MCV (81.0 - 99.0 FL) 100.4 H MCH (27.0 - 31.0 PG) 34.3 H MCHC (33.0 - 37.0 G/DL) 34.2 RDW (11.5 - 14.5 %) 14.9 H Plt Count (130 - 400 /CUMM) 296 MPV (7.4 - 10.4 FL) 8.1 Gran % (42.2 - 75.2 %) 73.9 Lymphocytes % (20.5 - 51.1 %) 16.9 L Monocytes % (1.7 - 9.3 %) 8.6 Eosinophils % (0 - 5 %) 0.2 Basophils % (0.0 - 2.0 %) 0.4 Absolute Granulocytes (1.4 - 6.5 /CUMM) 7.0 H Absolute Lymphocytes (1.2 - 3.4 /CUMM) 1.6 Absolute Monocytes (0.10 - 0.60 /CUMM) 0.8 H Absolute Eosinophils (0.0 - 0.7 /CUMM) 0 Absolute Basophils (0.0 - 0.2 /CUMM) 0 Toxicology Serum Alcohol (<10 MG/DL) < 10.0 Urines Urine Color (YEL,AMB,STR) YEL Urine Clarity (CLEAR) CLEAR Urine pH (5.0 - 8.0) 6.0 Ur Specific [place] (1.001 - 1.035) >= 1.030 Urine Protein (NEG,<30 MG/DL) NEG Urine Ketones (NEG) NEG Urine Nitrite (NEG) NEG Urine Bilirubin (NEG) NEG Urine Urobilinogen (0.1 - 1.0 EU/dl) 0.2 Ur Leukocyte Esterase (NEG) NEG Ur Microscopic EXAM NOT REQUIRED Urine Hemoglobin (NEG) NEG Urine Glucose (N MG/DL) NEG Diagnostic Data EKG Results EKG tracings are independently reviewed. EKG from 11/05/17 at 1352 reveals normal sinus rhythm at [address] depression noted in the anteriorly EKG from 11/06/17 reveals normal sinus rhythm at 65, QTC 512, borderline ST depression Other Results Screening CT scan of the chest 11/10/15: Assessment/Plan Assessment/Plan The patient is a 62-year-old female with history of hypertension, hypothyroidism , and alcohol abuse admitted for hypertensive urgency, ST depression on EKG, and hypomagnesemia. Blood pressure is under control on lisinopril. Hypomagnesemia has improved with supplementation. Initial EKG showed ST depression which has now resolved. She is noted to have mildly prolonged QT interval. Recommendations: * Continue lisinopril for blood pressure control * Agree with echocardiogram * Nuclear stress test will be arranged as outpatient to rule out ischemia given ST depression seen on EKG Consult Acknowledgment - Thank you for your consult request.
[2017-11-06] MEDS ORDERED: LEVOTHYROXINE25 MCG PO (12:35)
[2017-11-06] MEDS ORDERED: LISINOPRIL40 M1 PO ×2 (12:35→12:38)
[2017-11-06] MEDS ORDERED: SYNTHROID25 MCG PO (12:38)
[2017-11-06 14:22] VITALS: BP 132/80
--- NOTE | 2017-11-06 15:33 | Patient Discharge Instructions ---
Discharge Instructions General Discharge Information You were seen/treated for: Hypomagnesemia with EKG changes, hypertensive urgency, hypothyroidism Watch for these problems: If you have palpitations, chest pain, dizziness, muscle cramps, headache or changes in your vision, please go to your nearest emergency deparment. Special Instructions: Please follow-up with your primary care doctor, technician automated equipment, outpatient treatment program about your recent hospitalization. Also please see your technician automated equipment to schedule an outpatient stress test. Diet Continue normal diet: Yes Recommended Diet: Heart Healthy Acute Coronary Syndrome Inclusion Criteria At DC or during hospital stay patient has or had the following: ACS DIAGNOSIS No Discharge Core Measures Meds if any: Prescribed or Continued at Discharge Meds if any: NOT Prescribed or Continued at Discharge Congestive Heart Failure Inclusion Criteria At DC or during hospital stay patient has or had the following: CHF DIAGNOSIS No Discharge Core Measures Meds if any: Prescribed or Continued at Discharge Meds if any: NOT Prescribed or Continued at Discharge Cerebrovascular accident Inclusion Criteria At DC or during hospital stay patient has or had the following: CVA/TIA Diagnosis No Discharge Core Measures Meds if any: Prescribed or Continued at Discharge Meds if any: NOT Prescribed or Continued at Discharge Venous thromboembolism Inclusion Criteria VTE Diagnosis No VTE Type NONE VTE Confirmed by (Test) NONE Discharge Core Measures - Per Current guidelines, there needs to be overlap - treatment for the first 5 days of Warfarin therapy. - If discharged on Warfarin prior to 5 days of - overlap therapy, the patient will need to be - assessed for post discharge needs including - *Post discharge parental anticoagulation - *Warfarin and/or parental anticoagulation education - *Follow up date to check INR post discharge At least 5 days overlap therapy as Inpatient No (Not on warfarin) Meds if any: Prescribed or Continued at Discharge Note: Overlap Therapy is Warfarin and Anticoagulant Meds if any: NOT Prescribed or Continued at Discharge
--- NOTE | 2017-11-06 15:55 | ECHOCARDIOGRAM REPORT ---
DAVE BELCHER Age: 62 : 1955 Gender: F Exam Date: 11/05/2017 18:59 Exam Location: [address] Ht (in): 66 Wt (lb): 122 BSA: 1.60 BP: 168 / 93 Ordering Physician: Delvin Kilgore MD Referring Physician: Delvin Kilgore MD Technologist: Gracie Rolle [facility] Room Number: [id number] Indications: Hypertension Rhythm: Sinus Technical Quality: Fair FINDINGS Left Ventricle Normal size left ventricle. Mild concentric left ventricular hypertrophy. No obvious regional wall motion abnormalities. Normal left ventricular ejection fraction visually estimated at 60%. Abnormal relaxation filling pattern of the left ventricle for age (stage 1 diastolic dysfunction). Right Ventricle Normal right ventricular size and function. Right Atrium Normal right atrial size. Left Atrium Normal left atrial size. Mitral Valve Mildly calcified mitral valve annulus. Mitral valve mildly thickened. Mild mitral regurgitation. Aortic Valve Aortic valve not well visualized, grossly normal. No aortic valve stenosis or regurgitation. Tricuspid Valve Structurally normal tricuspid valve. Mild tricuspid regurgitation. No evidence of pulmonary hypertension. Right ventricular systolic pressure estimated to be within the normal range at 26 mmHg. Pulmonic Valve Pulmonic valve not well visualized. No pulmonic regurgitation. Pericardium No pericardial effusion. Great Vessels Normal size aortic root. Normal size inferior vena cava. CONCLUSIONS Normal size left ventricle. Mild concentric left ventricular hypertrophy. Normal left ventricular ejection fraction visually estimated at 60%. Abnormal relaxation filling pattern of the left ventricle for age (stage 1 diastolic dysfunction). Normal right ventricular size and function. Normal atrial size. Mild mitral regurgitation. Mild tricuspid regurgitation. No evidence of pulmonary hypertension. Normal size inferior vena cava. Fito Ruiz M.D. (Electronically Signed) Final Date: 06 November 2017 15:51 MEASUREMENTS (Male / Female) Normal Values 2D ECHO LV Diastolic Diameter PLAX 4.1 cm 4.2 - 5.9 / 3.9 - 5.3 cm LV Systolic Diameter PLAX 2.8 cm 2.1 - 4.0 cm LV Fractional Shortening PLAX 31.7 % 25 - 46 % LV Ejection Fraction 2D Teich 60.2 % IVS Diastolic Thickness 1.1 cm LVPW Diastolic Thickness 1.1 cm LV Relative Wall Thickness 0.5 RV Internal Dim ED PLAX 2.3 cm 1.9 - 3.8 cm LVOT Diameter 1.9 cm Aortic Root Diameter 2.7 cm LA Systolic Diameter LX 3.8 cm 3.0 - 4.0 / 2.7 - 3.8 cm LA Volume 41.0 cm 18 - 58 / 22 - 52 cm Ascending Aorta Diameter 2.9 cm DOPPLER AV Peak Velocity 117.0 cm/s AV Peak Gradient 5.5 mmHg AV Mean Velocity 75.4 cm/s AV Mean Gradient 3.0 mmHg AV Velocity Time Integral 23.9 cm LVOT Peak Velocity 82.7 cm/s LVOT Peak Gradient 2.7 mmHg LVOT Mean Velocity 45.3 cm/s LVOT Mean Gradient 1.0 mmHg LVOT Velocity Time Integral 16.9 cm LVOT Stroke Volume 47.9 cm AV Area Cont Eq vti 2.0 cm AV Area Cont Eq pk 2.0 cm MV Peak Velocity 73.9 cm/s MV Peak Gradient 2.2 mmHg MV Mean Velocity 42.3 cm/s MV Mean Gradient 1.0 mmHg Mitral E Point Velocity 49.9 cm/s Mitral A Point Velocity 64.2 cm/s Mitral E to A Ratio 0.8 MV PHT Velocity 60.8 cm/s MV Deceleration [place] 212.0 cm/s MV Pressure Half Time 86.0 ms MV Area PHT 2.6 cm MV Deceleration Time 292.0 ms TR Peak Velocity 228.0 cm/s TR Peak Gradient 20.8 mmHg Right Atrial Pressure 5.0 mmHg Pulmonary Artery Systolic Pressure 25.8 mmHg Right Ventricular Systolic Pressure 25.8 mmHg PV Peak Velocity 73.7 cm/s PV Peak Gradient 2.2 mmHg PV Mean Velocity 54.0 cm/s PV Mean Gradient 1.0 mmHg PV Velocity Time Integral 15.8 cm LV E' Lateral Velocity 6.9 cm/s Mitral E to LV E' Lateral Ratio 7.2 LV E' Septal Velocity 4.3 cm/s Mitral E to LV E' Septal Ratio 11.6
[2017-11-06 22:09] VITALS: BP 136/74
[2017-11-07 06:29] VITALS: BP 136/80
--- NOTE | 2017-11-07 07:08 | PN- Housestaff ---
Clint Dumont 11/07/17 0707: Subjective Follow-up For: Hypomagnesemia, hypertensive urgency (resolved) Tele-Events Since Last Visit: Normal sinus rhythm overnight from rates of 60-67, also sinus bradycardia 59 Subjective: Patient seen seated comfortably near the bed. Reports that she is feeling much improved from yesterday, able to sleep in the night without much restlessness. Patient feels that she is ready to be discharged. Denies any current symptoms of palpitations, chest pain, shortness of breath or dizziness. She is eager to continue her IOPT and is committed to remaining abstinent from smoking and alcohol. Review of Systems Constitutional: Denies: chills, diaphoresis, fever, weakness. Cardiovascular: Denies: chest pain, edema, palpitations. Respiratory: Denies: cough, short of breath, sputum production. Gastrointestinal: Denies: abdominal pain, diarrhea, nausea, vomiting. Objective Last 24 Hrs of Vital Signs/I&O Vital Signs Date Time Temp Pulse Resp B/P B/P Pulse O2 O2 Flow FiO2 Mean Ox Delivery Rate 11/07 0629 97.9 65 20 136/80 99 Room Air 11/07 0000 65 11/06 2209 98.1 66 20 136/74 99 11/06 2000 69 11/06 1422 98.3 71 20 132/80 99 11/06 1013 82 138/82 Intake & Output 11/07 0800 11/07 0000 11/06 1600 Intake Total 480 920 730 Output Total Balance 480 920 730 Intake, IV 200 10 Intake, Oral 480 720 720 Number 0 Bowel Movements Patient 56.274 kg Weight Physical Exam General Appearance: Alert, Oriented X3, Cooperative, No Acute Distress HEENT: Atraumatic, PERRLA, EOMI Neck: Supple, No JVD Cardiovascular: Regular Rate, Normal S1, Normal S2, No Murmurs Lungs: Clear to Auscultation Abdomen: Normal Bowel Sounds, Soft, No Tenderness Neurological: Normal Gait, Normal Speech, Strength at 5/5 X4 Ext Current Medications: Current Medications Sig/Hermes Start time Last Medication Dose Route Stop Time Status Admin Acetaminophen 650 MG .STK-MED ONE 11/06 2105 DC PO 11/06 2106 Acetaminophen 650 MG Q6P PRN 11/05 1700 AC 11/06 PO 210 Escitalopram Oxalate 20 MG DAILY 11/05 1847 AC 11/06 PO 1013 Gabapentin 300 MG TID PRN 11/05 1900 AC PO Heparin Sodium 5,000 UNIT Q8 11/05 2200 AC 11/07 (Porcine) SC 0619 Levothyroxine Sodium 0.025 MG DAILY AC 11/06 0815 AC 11/07 PO 0619 Lisinopril 40 MG DAILY 11/05 1715 AC 11/06 PO 1013 Magnesium Chloride 64 MG BID 11/06 0935 AC 11/06 PO 2109 Magnesium Sulfate 1 GM Q2H 11/06 1715 DC 11/06 Dextrose/Water 100 ML IV 11/06 2113 1929 Melatonin 3 MG AT BEDTIME NEED.. 11/06 2130 DC 11/06 PO 2142 Melatonin 5 MG .STK-MED ONE 11/06 1828 DC PO 11/06 1829 Naltrexone HCl 50 MG DAILY 11/06 1000 AC 11/06 PO 1246 Nicotine 21 MG DAILY 11/06 0930 AC 11/06 TOP 1014 Non-Formulary 0 SEE ADMIN CRITERIA 11/06 1000 CAN Medication ANY Last 24 Hrs of Lab/Cain Results Last 24 Hrs of Labs/Mics: Laboratory Tests 11/07/17 0625: Magnesium Pending, Total Bilirubin Pending, Direct Bilirubin Pending, AST Pending, ALT Pending, Alkaline Phosphatase Pending, Total Protein Pending, Albumin Pending, PT Pending, INR Pending 11/06/17 1555: Magnesium 1.5 L 11/06/17 0855: Folate Cancelled Assessment/Plan Assessment: Patient is a 62-year-old female with a history of alcohol abuse currently in treatment, hypertension, hypothyroidism and depression. She is being seen for acute EKG changes and hypertensive urgency in the setting of hypomagnesemia with a history of alcohol abuse. 1. Acute EKG changes flattening in the anterior leads out ischemia 2. Hypomagnesemia this morning 3. Alcohol abuse not been drinking daily protocol ordered 4. Hypertension 5. Hypothyroid Problem List: 1. Hypertensive urgency 2. Alcohol abuse 3. Hypothyroid 4. Acute electrocardiogram changes 5. Hypomagnesemia Pain Ratin Pain Location: none Pain Goal: Pain 4 or less Pain Plan: Call MD Tomorrow's Labs & Rationales: none Ayah Perales MD 11/07/17 0950: Attending MD Review Statement Attending Statement Attending MD Statement: examined this patient, discuss w/resident/PA/MISSILE TECHNICIAN, agreed w/resident/PA/MISSILE TECHNICIAN, reviewed EMR data (avail), discussed with nursing, discussed with case mgmt, reviewed images Attending Assessment/Plan: Patient feels well. She has had no events overnight. Her pressure is well controlled and her magnesium has come up. She stable to leave, her echocardiogram showed stage I diastolic dysfunction but no other abnormalities. We stressed compliance with her blood pressure and thyroid medicines, alcohol cessation and she has outpatient follow-up with her PCP and psychiatrist.
[2017-11-07 07:57] VITALS: BP 138/76
[2017-11-07 08:22] LABS: PT 10.4 SEC (9.4-12.5)
[2017-11-07] MEDS ORDERED: SLOW-MAG71.5 MG PO (09:45)
[2017-11-07] MEDS ORDERED: NICOTINE PATCH1 EAC3 TOP (09:45)
--- NOTE | 2017-11-07 13:10 | PN- Cardiology ---
Objective Vital Signs and I&Os Vital Signs Date Time Temp Pulse Resp B/P B/P Pulse O2 O2 Flow FiO2 Mean Ox Delivery Rate 11/07 1200 72 11/07 1000 69 11/07 0950 97 11/07 0757 138/76 11/07 0629 97.9 65 20 136/80 99 Room Air 11/07 0000 65 11/06 2209 98.1 66 20 136/74 99 11/06 2000 69 11/06 1422 98.3 71 20 132/80 99 Intake & Output 11/07 1600 11/07 0800 11/07 0000 11/06 1600 11/06 0800 11/06 0000 Intake Total 480 920 730 220 350 Output Total Balance 480 920 730 220 350 Intake, IV 200 10 Intake, Oral 480 720 720 220 350 Number 0 Bowel Movements Patient 124 lb 121 lb Weight Weight Bed scale Measurement Method Current Medications: Current Medications Sig/Hermes Start time Last Medication Dose Route Stop Time Status Admin Acetaminophen 650 MG .STK-MED ONE 11/06 2105 DC PO 11/06 210 Acetaminophen 650 MG Q6P PRN 11/05 1700 11/06 PO 2107 Escitalopram Oxalate 20 MG DAILY 11/05 1847 AC 11/07 PO 0757 Gabapentin 300 MG TID PRN 11/05 1900 AC PO Heparin Sodium 5,000 UNIT Q8 11/05 2200 AC 11/07 (Porcine) SC 0619 Levothyroxine Sodium 0.025 MG DAILY AC 11/06 0815 AC 11/07 PO 0619 Lisinopril 40 MG DAILY 11/05 1715 AC 11/07 PO 0757 Magnesium Chloride 64 MG BID 11/06 0935 11/07 PO 0757 Magnesium Sulfate 1 GM Q2H 11/[address] 11/06 Dextrose/Water 100 ML IV 11/06 2113 1929 Melatonin 3 MG AT BEDTIME NEED.. 11/[address] 11/06 PO 2142 Melatonin 5 MG .STK-MED ONE 11/06 1828 DC PO 11/06 182 Naltrexone HCl 50 MG DAILY 11/06 1000 AC 11/07 PO 0757 Nicotine 21 MG DAILY 11/06 0930 11/07 TOP 0757 Results Last 48 Hrs of Labs/Mics: Laboratory Tests 11/07/17 0625: Magnesium 1.8, Total Bilirubin 1.2, Direct Bilirubin 0.2, AST 87 H, ALT 56 H, Alkaline Phosphatase 74, Total Protein 6.5, Albumin 3.8, PT 10.4, INR 0.95 11/06/17 1555: Magnesium 1.5 L 11/06/17 0855: Folate Cancelled 11/06/17 0635: Anion Gap 9, Estimated GFR > 60, BUN/Creatinine Ratio 12.9, Magnesium 1.5 L, Total Bilirubin 1.8 H, Direct Bilirubin 0.3, AST 79 H, ALT 54 H, Alkaline Phosphatase 67, Total Protein 6.7, Albumin 3.9, Vitamin B12 350, Folate 3.9, CBC w Diff NO MAN DIFF REQ, RBC 3.70 L, MCV 101.0 H, MCH 34.6 H, MCHC 34.3, RDW 14.3, MPV 9.4, Gran % 61.3, Lymphocytes % 29.1, Monocytes % 7.0, Eosinophils % 2.1, Basophils % 0.5, Absolute Granulocytes 4.5, Absolute Lymphocytes 2.1, Absolute Monocytes 0.5, Absolute Eosinophils 0.2, Absolute Basophils 0 11/06/17 0215: Troponin I < 0.01, TSH 7.370 H, Free T4 1.19, Total T3 1.26 11/05/17 2050: Magnesium 1.8, Troponin I < 0.01 11/05/17 1348: Magnesium Cancelled 11/05/17 1347: Anion Gap 18 H, Estimated GFR > 60, BUN/Creatinine Ratio 12.5, Glucose 121 H, Calcium 10.2, Magnesium 0.9 *L, Total Bilirubin 1.7 H, AST 111 H, ALT 73 H, Alkaline Phosphatase 79, Troponin I < 0.01, Total Protein 8.1, Albumin 4.9, Globulin 3.2, Albumin/Globulin Ratio 1.5, TSH &T3 &Free T4 Intrp 6.580 H, CBC w Diff NO MAN DIFF REQ, RBC 4.14 L, MCV 100.4 H, MCH 34.3 H, MCHC 34.2, RDW 14.9 H, MPV 8.1, Gran % 73.9, Lymphocytes % 16.9 L, Monocytes % 8.6, Eosinophils % 0.2, Basophils % 0.4, Absolute Granulocytes 7.0 H, Absolute Lymphocytes 1.6, Absolute Monocytes 0.8 H, Absolute Eosinophils 0, Absolute Basophils 0, Serum Alcohol < 10.0, Urine Color YEL, Urine Clarity CLEAR, Urine pH 6.0, Ur Specific [place] >= 1.030, Urine Protein NEG, Urine Ketones NEG, Urine Nitrite NEG, Urine Bilirubin NEG, Urine Urobilinogen 0.2, Ur Leukocyte Esterase NEG, Ur Microscopic EXAM NOT REQUIRED, Urine Hemoglobin NEG, Urine Glucose NEG
--- NOTE | 2017-11-07 16:12 | Discharge Summary ---
Visit Information Visit Dates Admission Date: 11/05/17 Discharge Date: 11/07/17 Hospital Course Course Attending Physician: Ayah Perales MD Primary Care Physician: Jeanne Wallace MD Hospital Course: Ms. Cool is a 62-year-old female with history of alcohol abuse currently in treatment, hypertension, hypothyroidism and depression. The patient presented to outpatient psychiatry for medical screening and was sent to the emergency department due to abnormal lab findings of hypomagnesemia. Upon arrival to the emergency department, the patient was noted to have a blood pressure of 204/106, as well as acute EKG changes of new ST elevation in V4. Patient denied any associated symptoms including chest pain, palpitations, shortness of breath, visual changes, headache, weakness, tingling/numbness, changes in gait, lightheadedness, dizziness. The patient said that she had been prescribed hydrochlorothiazide and lisinopril for blood pressure, but was not taking them as she was told to stop by her primary care doctor almost 2 years ago. She was similarly no longer taking levothyroxine for her thyroid. Patient denied any changes in urinary or bowel habits, and other review of systems was likewise negative. The patient is a former smoker, having smoked about 1 pack per week for over 30 years, but reported that she quit and no longer smokes. She denied any recreational drug use. She did endorse a history of drinking alcohol 4 days a week and drinking at least "4 ounces" each of those days, but reported that she recently [facility] for [facility] abuse treatment. In spite of this, the patient reported that her last drink was this past , 4 days ago. Upon admission, the patient's Magnesium level was noted to be 1.8, and the patient was repleted with IV and PO magnesium. An EKG showed new ST depressions in V4, and a repeat EKG later showed T-wave flattening in the anterior leads. Serial troponins were negative, but the patient was found to have elevated liver enzymes, with an ALT of 73 and an AST of 111. The patient's thyroid levels were also abnormal, with TSH of 7.370 and levothyroxine was started at the patient's old dose. The patient's blood pressure improved shortly after receiving Lisinopril at her former dose, and this regimen was continued. The next morning the patient's magnesium level was at 1.5, and oral supplementation was continued, as well as IV repletion. The regimen of oral supplementation was continued, and the patient's Magnesium was 1.8 upon discharge. The patient's blood pressure was found to be 126/80 and remained within normal limits for the duration of her stay on Lisinopril. The patient was provided with nutritional education for hypomagnesemia, and cardiology recommended the patient follow-up in about a month for a nuclear exercise stress test as an outpatient to rule-out ischemic causes for the new EKG changes. An echocardiogram showed normal sized left ventricle, with concentric hypertrophy and stage 1 diastolic defect, and an EF estimated at 60%. The patient was discharged to home with instruction to follow-up with her primary care and [facility] program. Allergies: Coded Allergies: No Known Allergies (08/07/16) Pertinent Lab Results: Echocardiogram performed 11/05/17 found: Normal size left ventricle. Mild concentric left ventricular hypertrophy. Normal left ventricular ejection fraction visually estimated at 60%. Abnormal relaxation filling pattern of the left ventricle for age (stage 1 diastolic dysfunction). Normal right ventricular size and function. Normal atrial size. Mild mitral regurgitation. Mild tricuspid regurgitation. No evidence of pulmonary hypertension. Normal size inferior vena cava. AST 111 upon admission, 79 and 87 upon subsequent days ALT 73 upon admission, 54 and 56 upon subsequent days Mg+ 0.9 upon admission, 1.8 after initial supplementation, 1.5 next day and 1.8 upon discharge B12- 350 Folate- 3.9 TSH - 7.370, 6.480 subsequently Disposition Summary Disposition Principal Diagnosis: Hypomagnesemia Additional Diagnosis: Hypertensive urgency (resolved), hypothyroid Discharge Disposition: home or self care Discharge Instructions General Discharge Information Code Status: Full Code Patient's Diet: Heart healthy diet Patient's Activity: As tolerated Follow-Up Instructions/Appts: Patient instructed to follow-up with her primary care provider, artificial breeding technician after discharge Medications at Discharge Discharge Medications: Continue taking these medications: Ergocalciferol (Vitamin D2) (Vitamin D2) 50,000 UNIT CAPSULE 1 Capsule ORAL EVERY SUNDAY Qty = 4 Escitalopram Oxalate (Lexapro) 20 MG TABLET 1 Tablet ORAL DAILY Comments: Last Taken:11/07/17 Time:0900 Gabapentin (Gabapentin) 300 MG CAPSULE 1 Capsule ORAL THREE TIMES DAILY as needed for UNKNOWN Comments: Last Taken: Time: Naltrexone HCl (Naltrexone HCl) 50 MG TABLET 1 Tablet ORAL DAILY Comments: Last Taken:11/07/17 Time:0900 Start taking the following new medications: Lisinopril (Lisinopril) 40 MG TABLET 1 Tablet ORAL DAILY Qty = 30 No Refills Comments: Last Taken:11/07/17 Time:0900 Levothyroxine Sodium (Synthroid) 25 MCG TABLET 0.025 Milligram ORAL DAILY BEFORE BREAKFAST Qty = 30 No Refills Comments: Last Taken:11/07/17 Time:0700 Nicotine (Nicotine Patch) 21 MG/24 HOUR PATCH.TD24 1 PATCH On the skin DAILY Qty = 7 No Refills Comments: Last Taken:11/07/17 Time:0900 Magnesium Chloride (Slow-Mag) 71.5 MG TABLET.DR 1 Tablet ORAL TWICE DAILY Qty = 14 No Refills Comments: Last Taken:11/07/17 Time:0900 Copies To: [place] DUCKWORTH,Jeanne Reyna; Iman DUCKWORTH,Tayler; Kameron Rondon MD
== END 2017-11-07 13:25 | DRG 199 ==
LOC: ERH 13:35 → ERHI 16:15 → 1NO 16:15 → ENRESERV 17:15 → ENTRNSPT 17:50 → EDTRNSPT 17:58 → EDTRNSPTSTS 17:58 → 1NO 18:05 → CMPTRNSPT 18:18 → 1NO 11-06 08:12 → ENPENDDIS 11-07 09:49 → ENTRNSPT 11-07 12:56 → EDTRNSPTSTS 11-07 13:17 → EDTRNSPT 11-07 13:17 → 1NO 11-07 13:25 → CMPTRNSPT 11-07 13:27
PROVIDERS: Emergency Medicine; Hospitalist; Student in an Organized Health Care Education/Training Program
DX: I16.0 Hypertensive urgency (principal); E83.42 Hypomagnesemia; F10.10 Alcohol abuse, uncomplicated; Y90.0 Blood alcohol level of less than 20 mg/100 ml; E03.9 Hypothyroidism, unspecified; K70.40 Alcoholic hepatic failure without coma; F32.9 Major depressive disorder, single episode, unspecified; R94.31 Abnormal electrocardiogram [ECG] [EKG]; F17.210 Nicotine dependence, cigarettes, uncomplicated; G62.9 Polyneuropathy, unspecified
CPT/HCPCS: 1NSP; 36592; 81001; 81003; 82436; 93005; 93010; 93306; G0480; J1644